=== PATIENT | female | born 1970 | race Native Hawaiian/Other Pacific Islander ===

== ENCOUNTER 2017-09-10 14:19 | Outpatient (CLI) | payer BC | END 2017-09-10 21:12 | disposition home or self-care (01) | LOC: RAD 14:19 | DX: M79.671 Pain in right foot (principal) ==

== ENCOUNTER 2019-01-28 09:05 | Outpatient (CLI) | payer BC | END 2019-01-28 19:08 | disposition home or self-care (01) | LOC: RAD 09:05 | DX: Z01.818 Encounter for other preprocedural examination (principal) ==

== ENCOUNTER 2021-10-01 13:09 | Outpatient (CLI) | payer BC | END 2021-10-01 19:25 | disposition home or self-care (01) | LOC: RAD 13:09 | PROVIDERS: ATTEND Internal Medicine | DX: M81.8 Other osteoporosis without current pathological fracture (principal); S22.39XA Fracture of one rib, unspecified side, initial encounter for closed fracture; Y92.9 Unspecified place or not applicable ==